=== PATIENT | female | born 1975 | race Caucasian/White ===

== ENCOUNTER 2017-01-14 19:38 | Emergency (ER) | payer SELFPAY ==
[2017-01-14 19:44] VITALS: BMI 16.5
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
[2017-01-14] MEDS ORDERED: TORADOL 60 MG VIAL IM ONE (20:13)
[2017-01-14] MEDS ORDERED: NORFLEX INJ IM ONE (20:13)
[2017-01-14 20:15] LABS: BILIRUBIN,URINE NEGATIVE (NEGATIVE); BLOOD/HEMOGLOBIN,URINE 2+ (NEGATIVE); GLUCOSE, URINE NEGATIVE (NEGATIVE); KETONES,URINE NEGATIVE (NEGATIVE); LEUKOCYTE ESTERASE ,URINE 2+ (NEGATIVE); NITRITES,URINE NEGATIVE (NEGATIVE); PROTEIN,URINE NEGATIVE (NEGATIVE); UROBILINOGEN,URINE NORMAL (NORMAL)
[2017-01-14] MEDS ORDERED: TORADOL 60 MG VIAL ONE (20:15)
[2017-01-14] MEDS ORDERED: NORFLEX INJ ONE (20:16)
[2017-01-14 20:25] LABS: COLOR,URINE YELLOW (YELLOW)
[2017-01-14 20:26] LABS: APPEARANCE,URINE SLIGHTLY HAZY (CLEAR); BACTERIA,URINE TRACE /HPF (NEGATIVE); RBC,URINE RARE /HPF (NEGATIVE); SQUAMOUS EPITHELIAL CELL,UR FEW /HPF (NEGATIVE)
[2017-01-14 21:07] VITALS: BP 128/70
== END 2017-01-14 20:50 | disposition home or self-care (01) ==
LOC: ER 19:51
DX: M54.42 Lumbago with sciatica, left side (principal); N34.2 Other urethritis
CPT/HCPCS: 81001; 87086; 96372; 99282; J1885; J2360